=== PATIENT | male | born 1990 | race American Indian/Alaskan Native ===

== ENCOUNTER 2018-11-08 03:04 | Emergency (ER) | payer OTHER ==
[2018-11-08 03:38] LABS: Basophils % (Auto) 0.5 % (0.0-1.8); Eosinophils # (Auto) 0.1 K/mm3 (0.0-0.4); Eosinophils % (Auto) 1.5 % (0.0-4.3); Hematocrit 47.7 % (35.5-45.6); Hemoglobin 16.4 gm/dl (11.8-15.2); Lymphocytes % (Auto) 38.8 % (13.4-35.0); Mean Corpuscular HGB Conc 34 % (32-34); Mean Corpuscular Volume 97 fl (84-94); Monocytes # (Auto) 0.6 K/mm3 (0.0-0.8); Monocytes % (Auto) 11.1 % (0.0-7.3); Platelet Count 224 K/mm3 (140-440); Red Blood Count 4.91 M/mm3 (3.65-5.03); Red Cell Distribution Width 13.1 % (13.2-15.2)
[2018-11-08 03:56] LABS: BUN/Creatinine Ratio 10; Blood Urea Nitrogen 6 mg/dL (9-20); Calcium 9.1 mg/dL (8.4-10.2); Hemolysis Index 9
--- NOTE | 2018-11-08 04:49 | Emergency Department Report ---
ED Psych HPI - General Chief Complaint: Psych Stated Complaint: SUICIDAL THOUGHTS Time Seen by Provider: 11/08/18 03:23 Source: patient, police Mode of arrival: Ambulatory - History of Present Illness Initial Comments: 28 year old male with a past medical history of depression presents to the hospital with suicidal ideation and alcohol intoxication. Patient is minimally responsive because he is drunk as per his fiance and she provided the majority of history of present illness. She states that they have been together since June 2018 and he has been expressing suicidal ideation since that time. He has previously tried to step out into traffic but has not had any inpatient admission since he was a teenager. She states he drinks alcohol daily and did drink alcohol tonight. Denies a history of alcohol withdrawal tremors or seizures or substance abuse. Tonight patient threatened to overdose on his mother's medication but he was intercepted by his mom and melani. He told [facility] Department that he has had thoughts of using a gun to shoot himself. He did not ingest any medications prior to arrival. - Related Data Home Medications Medication Instructions Recorded Confirmed Last Taken No Known Home Medications [No 11/08/18 11/08/18 Unknown Reported Home Medications] Allergies Allergy/AdvReac Type Severity Reaction Status Date / Time No Known Allergies Allergy Verified 11/08/18 03:11 ED Review of Systems ROS: Stated complaint: SUICIDAL THOUGHTS Other details as noted in HPI Comment: All other systems reviewed and negative ED Past Medical Hx - Past Medical History Previous Medical History?: Yes Hx Psychiatric Treatment: Yes (depression) - Surgical History Past Surgical History?: Yes Additional Surgical History: bilateral legs, jaw, colostomy bag and reversal - Social History Smoking Status: Current Every Day Smoker Substance Use Type: Alcohol - Medications Home Medications: Home Medications Medication Instructions Recorded Confirmed Last Taken Type No Known Home Medications [No 11/08/18 11/08/18 Unknown History Reported Home Medications] ED Physical Exam - General Limitations: No Limitations - Other Other exam information: General: Lethargic, EtOH intake Head exam: Atraumatic, normocephalic Eyes exam: Normal appearance, pupils equal reactive to light, extraocular movements intact ENT: Moist mucous membrane, normal oropharynx Neck exam: Normal inspection, full range of motion, no meningismus nontender Respiratory exam: Clear to auscultation bilateral, no wheezes, rales, crackles Cardiovascular: Normal rate and rhythm, normal heart sounds Abdomen: Soft, nondistended, and nontender, with normal bowel sounds, no rebound, or guarding Extremity: Full range of motion normal inspection no deformity Back: Normal Inspection, full range of motion, no tenderness Neurologic: Lethargic, sensation grossly intact and moves all extremities equally Psychiatric: normal affect, normal mood Skin: Warm, dry, intact ED Course Vital Signs 11/08/18 03:06 Temperature 97.6 F Pulse Rate 76 Respiratory 18 Rate Blood Pressure 157/77 O2 Sat by Pulse 96 Oximetry - Reevaluation(s) Reevaluation #1: 11/08/18 04:49 The patient is a patient is acutely intoxicated and therefore unable to fully assess mental status at this time. Labs available elevate alcohol the other labs unremarkable. Urine collection pending. 1013 and transfer form has been signed. Mental health evaluation has been ordered once patient is alert. Patient will be signed out to oncoming physician to be assess mental status when less drunk. There was no trauma reported by family and he was alert and responsive prior to arrival. Recommend CT head if mental status does not improve with sobering. ED Medical Decision Making - Lab Data Result diagrams: 11/08/18 03:16 11/08/18 03:16 - Medical Decision Making Patient will need psychiatric assessment for suicidal ideation - Differential Diagnosis psychosis, depression, suicidal, drug abuse, alcohol abuse Critical Care Time: No Critical care attestation.: If time is entered above; I have spent that time in minutes in the direct care of this critically ill patient, excluding procedure time. ED Disposition Clinical Impression: Depression, Alcohol intoxication, Suicidal ideation Disposition: DC/TX-65 PSY HOSP/PSY UNIT Is pt being admited?: No Does the pt Need Aspirin: No
--- NOTE | 2018-11-08 06:42 | Cat Scan Report ---
PROCEDURE: CT HEAD/BRAIN WO CON TECHNIQUE: Computerized tomography of the head was performed without contrast material. CT DOSE LENGTH PRODUCT: 1048 mGycm HISTORY: altered mental status COMPARISONS: None . FINDINGS: Skull and scalp: Normal . Paranasal sinuses: Normal . Ventricles and subarachnoid spaces: Normal . Cerebrum: No evidence of hemorrhage, acute infarction or mass . Cerebellum and brainstem: No evidence of hemorrhage, acute infarction or mass . Vasculature: Normal . Other: None . ASPECTS: 10 IMPRESSION: There is no evidence of an acute intracranial process . This document is electronically signed by Lynda Gamble DO., November 08 2018 06:40:37 AM ET
[2018-11-08 10:31] LABS: Bilirubin,Urine NEG (Negative); Blood,Urine NEG (Negative); Color,Urine Yellow (Yellow); Mucus,Urine FEW /HPF; Protein,Urine <15 mg/dL mg/dL (Negative); Urobilinogen,Urine < 2.0 mg/dL (<2.0); WBC,Urine < 1.0 /HPF (0.0-6.0)
[2018-11-08 10:43] LABS: Amphetamine Screen,Urine PRESUMPTIVE NEGATIVE; Benzodiazepines Screen,Urine PRESUMPTIVE NEGATIVE; Cannabinoid Screen,Urine PRESUMPTIVE NEGATIVE; Cocaine Screen,Urine PRESUMPTIVE NEGATIVE; Methadone Screen,Urine PRESUMPTIVE NEGATIVE; Opiate Screen,Urine PRESUMPTIVE NEGATIVE
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
--- NOTE | 2018-11-10 10:46 | Progress Note ---
Subjective - Reason for Consult Consult date: 11/10/18 Reason for consult: Psychiatry Follow-up - Chief Complaint Chief complaint: "I don't know what to do with my life" 28 year old male that presents to the emergency room with suicidal ideations and alcohol intoxication. Today the patient is vague during the assessment. He stated that he didn't have much to talk about today. He would not confirm or deny SI's when asked. He denies HI's and AVH's. Mental Status Exam - Vital signs Last Vital Signs Temp 98.2 F 11/10/18 02:18 Pulse 54 L 11/10/18 02:18 Resp 16 11/10/18 02:18 BP 115/75 11/10/18 02:18 Pulse Ox 98 11/10/18 02:18 - Exam Narrative exam: MSE: Appearance: calm Behavior: poor eye contact Speech: regular rate and tone Mood: "down" withdrawn Affect: flat Thought Process: unable to assess Thought Content: denies HI's and A/VH's Motor Activity: sitting up in the bed Cognition: A/O x3 Insight: vague Judgment: unable to assess Assessment and Plan Impression: MDD. Alcohol Use Disorder. Today the patient is calm, but withdrawn during the assessment. UDS is negative. DDx: R/O Bipolar DO, Alcohol Induced Mood DO Recommendation/Plan: Continue 1013 and Zoloft 25 mg PO daily for depression. Discussed possible suicidality/medication induced talha with the patient reference Zoloft. Dispo: The patient was referred to inpatient psy services. Will staff with Dr Shepherd.
[2018-11-10] MEDS: ZOLOFT PO SCH (11:10)
[2018-11-11] MEDS: ZOLOFT PO SCH (11:30)
[2018-11-11] MEDS ORDERED: ZOLOFT ONE (11:44)
[2018-11-11 15:23] VITALS: BP 118/53
--- NOTE | 2018-11-11 17:14 | Progress Note ---
Subjective - Reason for Consult Consult date: 11/11/18 Reason for consult: Psyciatry Follow-up - Chief Complaint Chief complaint: "Life isn't fair" 28 year old male that presents to the emergency room with suicidal ideations and alcohol intoxication. Today the patient is calm during the assessment. He stated that life isn't fair and that's why suicide maybe an option. He would not confirm or deny being suicidal when asked. He stated i ncreased alcohol consumption (etoh) because of relationship issues with an ex- girlfriend. He denies HI's and AVH's. He denies any side effects of his medication. Mental Status Exam - Vital signs Last Vital Signs Temp 98.2 F 11/11/18 14:30 Pulse 53 L 11/11/18 14:30 Resp 18 11/11/18 14:30 BP 118/53 11/11/18 14:30 Pulse Ox 97 11/11/18 14:30 - Exam Narrative exam: MSE: Appearance: calm Behavior: poor eye contact Speech: regular rate and tone Mood: withdrawn Affect: flat Thought Process: circumstantial Thought Content: denies HI's and A/VH's Motor Activity: sitting up in the bed Cognition: A/O x3 Insight: variable Judgment: variable Assessment and Plan Impression: MDD. Alcohol Use Disorder. Today the patient is calm during the assessment. UDS is negative. DDx: R/O Bipolar DO, Alcohol Induced Mood DO Recommendation/Plan: Continue 1013 and Zoloft 25 mg PO daily for depression. Discussed possible suicidality/medication induced talha with the patient reference Zoloft. Dispo: The patient was accepted to [facility] staff with Dr Shepherd.
--- NOTE | 2018-11-12 12:56 | Progress Note ---
Subjective - Reason for Consult Consult date: 11/12/18 Reason for consult: Psychiatric Follow-up Evaluation Mental Status Exam - Vital signs Last Vital Signs Temp 98.2 F 11/11/18 14:30 Pulse 53 L 11/11/18 14:30 Resp 18 11/11/18 14:30 BP 118/53 11/11/18 14:30 Pulse Ox 97 11/11/18 14:30
== END 2018-11-11 17:00 ==
LOC: ED 03:04 → EEVIPCON 03:04 → ED 11-11 17:00
DX: F33.2 Major depressive disorder, recurrent severe without psychotic features (principal); F10.129 Alcohol abuse with intoxication, unspecified; F17.200 Nicotine dependence, unspecified, uncomplicated
CPT/HCPCS: 36415; 70450; 80048; 80307; 81001; 85025; 99285; G0480; 80320

== ENCOUNTER 2020-09-02 22:15 | Emergency (ER) | payer SELFPAY ==
[2020-09-02 23:17] VITALS: BP 120/72
[2020-09-02] MEDS ORDERED: SODIUM CHLORIDE 0.9% 500 ML 500 ML IV ONE (23:17)
[2020-09-02] MEDS ORDERED: ACETAMINOPHEN 500 MG TAB PO STA (23:17)
[2020-09-02] MEDS ORDERED: fentaNYL 100 MCG/2 ML INJ IV ONE (23:34)
[2020-09-02] MEDS ORDERED: ONDANSETRON 4 MG/2 ML INJ IV ONE (23:34)
[2020-09-02] MEDS ORDERED: SODIUM CHLORIDE 0.9% 1000 ML 1,000 ML IV ONE (23:34)
[2020-09-02] MEDS ORDERED: LIDOCAINE VISCOUS 2% 15 ML ORAL LIQD PO ONE (23:35)
[2020-09-02] MEDS ORDERED: cefTRIAXone/NS 1 GM/50 ML 1 GM/50 ML BAG IV ONE (23:37)
--- NOTE | 2020-09-02 23:42 | Emergency Department Report ---
HPI - General Chief Complaint: Sore Throat Time Seen by Provider: 09/02/20 23:20 - HPI HPI: Room 34 The patient is a 29-year-old male present with a chief complaint of sore throat and headache. The patient states yesterday he developed a sore throat and headache with a subjective fever. The patient states he went to sleep but his symptoms did not improve when he awakened. Patient with shaking chills. Patient denies cough or contact with any known Covid positive patients. Patient currently gives his pain score 6-7/10 ED Past Medical Hx - Past Medical History Previous Medical History?: No Hx Psychiatric Treatment: Yes (depression) - Surgical History Past Surgical History?: Yes Additional Surgical History: bilateral legs, jaw, colostomy bag and reversal - Family History Family history: no significant - Social History Smoking Status: Current Some Day Smoker Substance Use Type: None (Denies illicit drug use), Alcohol (Occasional) - Medications Home Medications: Home Medications Medication Instructions Recorded Confirmed Last Taken Type Amoxicillin/Potassium Clav 1 each PO BID #20 tablet 09/03/20 Unknown Rx [Augmentin 875-125 Tablet] HYDROcodone/APAP 5-325 [Hamilton 1 - 2 each PO Q6HR PRN #14 tablet 09/03/20 Unknown Rx 5/325] Ibuprofen [Motrin 800 MG tab] 800 mg PO Q8HR PRN #20 tablet 09/03/20 Unknown Rx ED Review of Systems ROS: Stated complaint: SORE THROAT Other details as noted in HPI Constitutional: fever (Subjective) Eyes: denies: eye pain ENT: throat pain Respiratory: denies: cough Cardiovascular: denies: chest pain Endocrine: no symptoms reported Gastrointestinal: denies: abdominal pain Genitourinary: denies: dysuria Musculoskeletal: denies: back pain Neurological: headache Physical Exam - Physical Exam Vital Signs: Vital Signs 09/02/20 23:11 Temperature 102.5 F H Pulse Rate 137 H Respiratory 16 Rate Blood Pressure 120/72 O2 Sat by Pulse 95 Oximetry Vital Signs 09/02/20 09/03/20 09/03/20 23:11 01:28 01:55 Temperature 102.5 F H 99.4 F Pulse Rate 137 H 88 Respiratory 16 17 Rate Blood Pressure 120/72 O2 Sat by Pulse 95 97 Oximetry Physical Exam: GENERAL: The patient is well-developed well-nourished male lying on stretcher appearing fatigued but in no acute distress. [] HEENT: Normocephalic. Atraumatic. Extraocular motions are intact. Pharyngeal erythema with exudate on the right. Normal phonation. No trismus NECK: Supple. There is no stridor CHEST/LUNGS: Clear to auscultation. There is no respiratory distress noted. HEART/CARDIOVASCULAR: Regular. There is tachycardia. There is no gallop rub or murmur. ABDOMEN: Abdomen is soft, nontender. Patient has normal bowel sounds. There is no abdominal distention. SKIN: There is no rash. There is no edema. There is no diaphoresis. NEURO: The patient is awake, alert, and oriented. The patient is cooperative. The patient has normal speech MUSCULOSKELETAL: There is no evidence of acute injury. ED Course Vital Signs 09/02/20 23:11 Temperature 102.5 F H Pulse Rate 137 H Respiratory 16 Rate Blood Pressure 120/72 O2 Sat by Pulse 95 Oximetry ED Medical Decision Making - Lab Data Result diagrams: 09/03/20 Unknown 09/02/20 23:46 Laboratory Tests 09/02/20 09/02/20 09/02/20 23:46 23:46 23:46 WBC RBC Hgb Hct MCV MCH MCHC RDW Plt Count Lymph % (Auto) Liberty % (Auto) Eos % (Auto) Baso % (Auto) Lymph # (Auto) Liberty # (Auto) Eos # (Auto) Baso # (Auto) Seg Neutrophils % Seg Neutrophils # PT INR VBG pH 7.429 H Sodium 137 Potassium 3.6 Chloride 99.4 Carbon Dioxide 26 Anion Gap 15 BUN 8 L Creatinine 0.9 Estimated GFR > 60 BUN/Creatinine Ratio 9 Glucose 106 H Lactic Acid 1.10 Calcium 9.1 Total Bilirubin 0.50 AST 19 ALT 24 Alkaline Phosphatase 59 Total Protein 6.9 Albumin 3.7 L Albumin/Globulin Ratio 1.2 09/03/20 09/03/20 Unknown Unknown WBC 17.5 H RBC 5.07 H Hgb 16.4 H Hct 48.0 H MCV 95 H MCH 32 MCHC 34 RDW 12.9 L Plt Count 206 Lymph % (Auto) 9.7 L Liberty % (Auto) 11.7 H Eos % (Auto) 0.1 Baso % (Auto) 0.2 Lymph # (Auto) 1.7 Liberty # (Auto) 2.0 H Eos # (Auto) 0.0 Baso # (Auto) 0.0 Seg Neutrophils % 78.3 H Seg Neutrophils # 13.7 H PT 14.2 INR 1.12 VBG pH Sodium Potassium Chloride Carbon Dioxide Anion Gap BUN Creatinine Estimated GFR BUN/Creatinine Ratio Glucose Lactic Acid Calcium Total Bilirubin AST ALT Alkaline Phosphatase Total Protein Albumin Albumin/Globulin Ratio - Radiology Data Radiology results: report reviewed (Chest x-ray, lateral soft tissue neck x-ray ), image reviewed (Chest x-ray, lateral soft tissue neck x-ray) interpreted by me: Chest x-ray-no focal infiltrates, no pneumothorax, no foreign body seen Lateral soft tissue neck x-ray-no evidence of epiglottitis, no prevertebral swelling. No foreign body seen [address] [address] XRay Report Signed Patient: DORA CARTY MR#: [id number] : 1990 Acct:[id number] Age/Sex: 29 / M ADM Date: 09/02/20 Loc: ED Attending Dr: Ordering Physician: MARLENY TSE MD Date of Service: 09/02/20 Procedure(s): XR chest 1V ap Accession Number(s): [id number] cc: MARLENY TSE MD Fluoro Time In Minutes: XR chest 1V ap INDICATION / CLINICAL INFORMATION: possible Sepsis COMPARISON: None available. FINDINGS: SUPPORT DEVICES: None. HEART / MEDIASTINUM: No significant abnormality. LUNGS / PLEURA: Lungs are clear. Costophrenic sulci are sharp. No pneumothorax. ADDITIONAL FINDINGS: No significant additional findings. IMPRESSION: 1. No acute findings. Signer Name: Sanket Meraz MD Signed: 09/03/2020 12:48 AM Workstation Name: [id number] Transcribed By: CS Dictated By: Sanket Meraz MD Electronically Authenticated By: Sanket Meraz MD Signed Date/Time: 09/03/2047 DD/ TD/TT: [address] [address] XRay Report Signed Patient: DORA CARTY MR#: [id number] : 1990 Acct:[id number] Age/Sex: 29 / M ADM Date: 09/02/20 Loc: ED Attending Dr: Ordering Physician: MARLENY TSE MD Date of Service: 09/02/20 Procedure(s): XR neck soft tissue Accession Number(s): [id number] cc: MARLENY TSE MD Fluoro Time In Minutes: XR neck soft tissue INDICATION / CLINICAL INFORMATION: Sore throat, fever. COMPARISON: None available. FINDINGS: No prevertebral soft tissue thickening. Airway is widely patent. No foreign body. Adenoid tonsils are normal in size. Impression: 1. No significant abnormality. Signer Name: Sanket Meraz MD Signed: 09/03/2020 12:51 AM Workstation Name: [id number] Transcribed By: CS Dictated By: Sanket Meraz MD Electronically Authenticated By: Sanket Meraz MD Signed Date/Time: 09/03/2050 DD/ TD/TT: - Differential Diagnosis Pharyngitis, epiglottitis, Critical care attestation.: If time is entered above; I have spent that time in minutes in the direct care of this critically ill patient, excluding procedure time. ED Disposition Clinical Impression: Acute pharyngitis Disposition: - TO HOME OR SELFCARE Is pt being admited?: No Does the pt Need Aspirin: No Condition: Stable Instructions: Pharyngitis Additional Instructions: Return to the emergency department should you develop worsening symptoms, inability to tolerate food or liquids, high fever or any other concerns Prescriptions: Amoxicillin/Potassium Clav [Augmentin 875-125 Tablet] 1 each PO BID #20 tablet Ibuprofen [Motrin 800 MG tab] 800 mg PO Q8HR PRN #20 tablet PRN Reason: Pain, Moderate (4-6) HYDROcodone/APAP 5-325 [Hamilton 5/325] 1 - 2 each PO Q6HR PRN #14 tablet PRN Reason: Pain Referrals: PRIMARY MD VAL [Primary Care Provider] - 3-5 Days AURELIO MICHAEL MD [Staff Physician] - 3-5 Days (Dr. Michael is an director emergency services (ear nose and throat doctor). Please follow-up with him for further evaluation) Time of Disposition: 02:07
[2020-09-03 00:19] LABS: Basophils % (Auto) 0.2 % (0.0-1.8); Eosinophils % (Auto) 0.1 % (0.0-4.3); Hemoglobin 16.4 gm/dl (11.8-15.2); Lymphocytes # (Auto) 1.7 K/mm3 (1.2-5.4); Lymphocytes % (Auto) 9.7 % (13.4-35.0); Mean Corpuscular HGB Conc 34 % (32-34); Mean Corpuscular Volume 95 fl (84-94); Monocytes % (Auto) 11.7 % (0.0-7.3); Platelet Count 206 K/mm3 (140-440); Red Blood Count 5.07 M/mm3 (3.65-5.03); Red Cell Distribution Width 12.9 % (13.2-15.2)
[2020-09-03 00:27] LABS: INR 1.12 (0.87-1.13)
[2020-09-03 00:31] LABS: Alanine Aminotransferase 24 units/L (7-56); Albumin 3.7 g/dL (3.9-5); BUN/Creatinine Ratio 9; Blood Urea Nitrogen 8 mg/dL (9-20); Calcium 9.1 mg/dL (8.4-10.2); Hemolysis Index 3
--- NOTE | 2020-09-03 00:52 | XRay Report ---
XR chest 1V ap INDICATION / CLINICAL INFORMATION: possible Sepsis COMPARISON: None available. FINDINGS: SUPPORT DEVICES: None. HEART / MEDIASTINUM: No significant abnormality. LUNGS / PLEURA: Lungs are clear. Costophrenic sulci are sharp. No pneumothorax. ADDITIONAL FINDINGS: No significant additional findings. IMPRESSION: 1. No acute findings. Signer Name: Sanket Meraz MD Signed: 09/03/2020 12:48 AM Workstation Name: [id number]
--- NOTE | 2020-09-03 00:55 | XRay Report ---
XR neck soft tissue INDICATION / CLINICAL INFORMATION: Sore throat, fever. COMPARISON: None available. FINDINGS: No prevertebral soft tissue thickening. Airway is widely patent. No foreign body. Adenoid tonsils are normal in size. Impression: 1. No significant abnormality. Signer Name: Sanket Meraz MD Signed: 09/03/2020 12:51 AM Workstation Name: [id number]
== END 2020-09-03 02:19 | disposition home or self-care (01) ==
LOC: ED 22:15
DX: J02.9 Acute pharyngitis, unspecified (principal); F17.200 Nicotine dependence, unspecified, uncomplicated; F32.9 Major depressive disorder, single episode, unspecified; Z98.890 Other specified postprocedural states; Z79.899 Other long term (current) drug therapy
CPT/HCPCS: 36415; 70360; 71045; 80053; 82140; 82805; 85025; 85610; 87040; 96365; 96375; 99284; J0696; J2405; J3010; J7030